=== PATIENT | male | born 2000 | race Caucasian/White ===

== ENCOUNTER 2023-04-06 16:40 | Emergency (ER) | payer OTHER ==
[~2023-04-06] VITALS: Ht 177.8 cm; Wt 68.0 kg
[2023-04-06 16:40] VITALS: BP_SYST 137; PULSE 72; RESP 20; TEMP 97.8; O2SAT 97
[2023-04-06] MEDS ORDERED: DIPHENHYDRAMINE INJ 50 MG/ML VIAL IVP ONE (17:00)
[2023-04-06] MEDS ORDERED: methylPREDNISolone SOD SUCC/PF 62.5 MG/ML VIAL IVP ONE (17:00)
[2023-04-06 17:41] VITALS: BP_SYST 130; PULSE 72; RESP 20; TEMP 97.8; O2SAT 97
[2023-04-06] MEDS ORDERED: MED4 PO (18:06)
[2023-04-06] MEDS ORDERED: FLUO60CR TP (18:06)
[2023-04-06] MEDS ORDERED: FEXO1TAB8 PO (18:06)
[2023-04-06] MEDS ORDERED: EPIN0.3P3 IM (18:10)
== END 2023-04-06 18:10 | disposition home or self-care (01) ==
LOC: SED 16:40
DX: T78.1XXA Other adverse food reactions, not elsewhere classified, initial encounter (principal); J45.909 Unspecified asthma, uncomplicated; Z79.899 Other long term (current) drug therapy; X58.XXXA Exposure to other specified factors, initial encounter
CPT/HCPCS: 99284; 96374; 96375; J1200; J2930